=== PATIENT | male | born 1970 ===

== ENCOUNTER 2024-06-15 04:36 | Day surgery (SDC) | payer OTHER ==
[2024-06-07 15:15] VITALS: BMI 23.6
[2024-06-15] MEDS ORDERED: MIDAZOLAM HCL 2 MG/2 ML SINGLE DOSE VIAL ONE (08:09)
[2024-06-15 08:40] VITALS: TEMP 98.4
[2024-06-15 09:57] VITALS: BP 178/110; PULSE 63; RESP 108
== END 2024-06-15 09:45 | disposition home or self-care (01) ==
LOC: JASU-ENDO 04:36
PROVIDERS: ATTEND Student in an Organized Health Care Education/Training Program
PROC: 0DJD8ZZ Inspection of Lower Intestinal Tract, Via Natural or Artificial Opening Endoscopic (ICD-10-PCS; principal; 2024-06-15 08:00)
DX: Z12.11 Encounter for screening for malignant neoplasm of colon (principal)